=== PATIENT | male | born 1955 | race African-American/Black ===

== ENCOUNTER 2023-08-20 17:11 | Inpatient (IN) | payer OTHER, MEDICARE ==
[~2023-08-20] VITALS: Ht 182.9 cm; Wt 139.9 kg
[2023-08-20] MEDS ORDERED: HYDRALAZINE 20MG/ML VIAL IV ONE ×2 (18:15→19:45)
[2023-08-20 18:19] LABS: BASOPHILS % 0.4 % (0.0-2.0); EOSINOPHILS % 1.5 % (0.0-5.0); HEMATOCRIT. 38.1 % (42.0-52.0); HEMOGLOBIN. 12.3 g/dL (14.0-18.0); LYMPHOCYTES % 11.7 % (20.0-50.0); MEAN CORPUSCULAR HEMOGLOBIN 28.5 pg (28.0-32.0); MEAN CORPUSCULAR HGB CONC 32.4 g/dL (31.0-37.0); MEAN PLATELET VOLUME 9.1 fl (7.4-10.4); MONOCYTES % 9.1 % (2.0-8.0); NEUTROPHILS % 77.3 % (40.0-76.0); PLATELET 156 x1000/uL (130-400); RED BLOOD CELL COUNT 4.32 mill/uL (4.7-6.1); RED CELL DISTRIBUTION WIDTH 15.3 % (11.6-14.6); WHITE BLOOD COUNT 5.1 x1000/uL (4.5-11.0)
[2023-08-20 18:24] LABS: CHLORIDE 104 mEq/L (98-107); INDEX HEMOLYSI 1 (1-3); INDEX ICTERIC 1 (1-4); INDEX LIPEMIC 1 (1-3); POTASSIUM 3.5 mEq/L (3.5-5.1); SODIUM 138 mEq/L (136-145)
[2023-08-20 18:29] LABS: INR 1.3; PROTHROMBIN TIME 13.9 sec (9.6-11.0)
[2023-08-20 18:33] LABS: ALANINE AMINOTRANSFERASE 33 IU/L (13-61); ALBUMIN 3.3 g/dL (3.4-5.0); ASPARTATE AMINOTRANSFERASE 28 IU/L (15-37); BILIRUBIN TOTAL 1.3 mg/dL (0.1-1.0); CARBON DIOXIDE 32 mEq/L (21-32); CREATININE 1.1 mg/dL (0.6-1.3); GLUCOSE 123 mg/dL (70-105); NT PRO B-TYPE NATRIURETIC PEP 1846 pg/mL (5-125); PROTEIN TOTAL 7.4 g/dL (6.0-8.3); TROPONIN I HIGH SENSITIVITY 37 ng/L (<78); UREA NITROGEN BLOOD 13 mg/dL (7-21)
[2023-08-20 18:33] LABS: CLARITY URINE CLEAR (CLEAR); COLOR URINE YELLOW (YELLOW); GLUCOSE URINE NEGATIVE (NEGATIVE); KETONES URINE NEGATIVE (NEGATIVE); LEUKOCYTE ESTERASE URINE NEGATIVE (NEGATIVE); NITRITE URINE NEGATIVE (NEGATIVE); OCCULT BLOOD URINE NEGATIVE (NEGATIVE); PROTEIN URINE NEGATIVE (NEGATIVE); SPECIFIC GRAVITY URINE 1.012 (1.005-1.030); UROBILINOGEN URINE 0.2 E.U./dL (0.2-1.0)
[2023-08-20] MEDS ORDERED: ASPIRIN 325MG TABLET PO ONE (19:00)
[2023-08-20 20:30] VITALS: BP 188/85; PULSE 57; RESP 20; TEMP 97.5
[2023-08-20] MEDS ORDERED: HYDRALAZINE 20MG/ML VIAL IV NR ×2 (21:30→22:30)
[2023-08-20] MEDS ORDERED: HYDRALAZINE 10 MG in SODIUM CHLORIDE 0.9% 49.5 ML IV STA (22:07)
[2023-08-20] MEDS ORDERED: ONDANSETRON HCL 4MG/2ML INJ IV PRN (22:15)
[2023-08-20] MEDS ORDERED: ACETAMINOPHEN 325MG TABLET PO PRN (22:15)
[2023-08-20] MEDS: AMLODIPINE 10MG TABLET PO SCH (23:18)
[2023-08-21] VITALS: BP 198/108; PULSE 61; RESP 20; TEMP 96.6
[2023-08-21] MEDS: CLONIDINE 0.1MG TABLET PO PRN (02:32)
[2023-08-21] MEDS ORDERED: LOSA25TA26 MT (03:59)
[2023-08-21] MEDS ORDERED: HYDR-4133 MT (03:59)
[2023-08-21] MEDS ORDERED: FURO-152 MT (03:59)
[2023-08-21] MEDS ORDERED: CARV3.1242 MT (03:59)
[2023-08-21] MEDS ORDERED: DIGO125T80 MT (03:59)
[2023-08-21] MEDS ORDERED: METF500S9 PO (03:59)
[2023-08-21] MEDS ORDERED: POTA8CAP20 MT (03:59)
[2023-08-21 04:00] VITALS: BP_SYST 176; BP_SYST 198; BP_DIAS 108; BP_DIAS 91; PULSE 61; RESP 20; TEMP 96.6; TEMP 98.1
[2023-08-21] MEDS ORDERED: ATOR10TA69 MT (04:00)
[2023-08-21 05:04] LABS: *AMPHETAMINES SCREEN URINE NEGATIVE (NEGATIVE); *BARBITURATES SCREEN URINE NEGATIVE (NEGATIVE); *BENZODIAZEPINES SCREEN URINE NEGATIVE (NEGATIVE); *COCAINE SCREEN URINE NEGATIVE (NEGATIVE); ECSTASY MDMA SCREEN URINE NEGATIVE (NEGATIVE); OPIATES URINE SCREEN NEGATIVE (NEGATIVE); PHENCYCLIDINE URINE SCREEN NEGATIVE (NEGATIVE)
[2023-08-21 05:42] LABS: BASOPHILS % 0.5 % (0.0-2.0); EOSINOPHILS % 2.3 % (0.0-5.0); HEMATOCRIT. 35.3 % (42.0-52.0); HEMOGLOBIN. 11.7 g/dL (14.0-18.0); LYMPHOCYTES % 14.7 % (20.0-50.0); MEAN CORPUSCULAR HGB CONC 33.2 g/dL (31.0-37.0); MEAN CORPUSCULAR VOLUME 87.2 fL (80.0-94.0); MEAN PLATELET VOLUME 9.1 fl (7.4-10.4); MONOCYTES % 12.5 % (2.0-8.0); PLATELET 141 x1000/uL (130-400); RED BLOOD CELL COUNT 4.04 mill/uL (4.7-6.1); RED CELL DISTRIBUTION WIDTH 15.1 % (11.6-14.6); WHITE BLOOD COUNT 4.5 x1000/uL (4.5-11.0)
[2023-08-21 05:58] LABS: CHLORIDE 105 mEq/L (98-107); INDEX HEMOLYSI 1 (1-3); INDEX ICTERIC 1 (1-4); INDEX LIPEMIC 1 (1-3); POTASSIUM 3.4 mEq/L (3.5-5.1); SODIUM 139 mEq/L (136-145)
[2023-08-21 06:11] LABS: ALANINE AMINOTRANSFERASE 28 IU/L (13-61); ALBUMIN 2.9 g/dL (3.4-5.0); ASPARTATE AMINOTRANSFERASE 23 IU/L (15-37); BILIRUBIN DIRECT 0.3 mg/dL (0.0-0.2); BILIRUBIN TOTAL 1.2 mg/dL (0.1-1.0); CARBON DIOXIDE 32 mEq/L (21-32); CHOLESTEROL 100 mg/dL (<200); CREATININE 1.1 mg/dL (0.6-1.3); GLUCOSE 136 mg/dL (70-105); HDL CHOLESTEROL 35 mg/dL (40-59); LDL CHOLESTEROL 63 mg/dL (5-100); PHOSPHORUS 2.3 mg/dL (2.5-4.9); PROTEIN TOTAL 6.7 g/dL (6.0-8.3); TRIGLYCERIDE 47 mg/dL (0-150); TROPONIN I HIGH SENSITIVITY 40 ng/L (<78); UREA NITROGEN BLOOD 12 mg/dL (7-21)
[2023-08-21 07:00] LABS: CANNABINOID URINE SCREEN NEGATIVE (NEGATIVE)
[2023-08-21 08:00] VITALS: BP 150/77; PULSE 64; RESP 18; TEMP 98.6
[2023-08-21] MEDS: AMLODIPINE 10MG TABLET PO SCH (11:03)
[2023-08-21] MEDS: ASPIRIN 81MG EC TABLET PO SCH (11:03)
[2023-08-21] MEDS: ENOXAPARIN 40MG/0.4ML SYR SUBCUT SCH ×2 (11:04→21:50)
[2023-08-21 12:00] VITALS: BP 169/97; PULSE 54; RESP 18; RESP 20; TEMP 98
[2023-08-21] MEDS: HYDRALAZINE 20MG/ML VIAL IV PRN (14:32)
[2023-08-21 17:12] VITALS: BP 167/80; PULSE 83; RESP 20; TEMP 98.2
[2023-08-21] MEDS ORDERED: NALOXONE HCL 0.4MG/ML VIAL IV PRN (17:15)
[2023-08-21 20:00] VITALS: BP 167/86; PULSE 62; RESP 20; TEMP 98.5
[2023-08-22] VITALS: BP 164/82; PULSE 56; RESP 20; TEMP 98.2
[2023-08-22] MEDS: HYDROCODONE/ACETAMINOPHEN 5/325MG TABLET PO PRN ×2 (02:16→21:37)
[2023-08-22 04:00] VITALS: BP 162/78; PULSE 62; RESP 20; TEMP 98.1
[2023-08-22 07:15] LABS: BASOPHILS % 0.7 % (0.0-2.0); EOSINOPHILS % 2.3 % (0.0-5.0); HEMATOCRIT. 35.4 % (42.0-52.0); HEMOGLOBIN. 11.7 g/dL (14.0-18.0); LYMPHOCYTES % 16.8 % (20.0-50.0); MEAN CORPUSCULAR HEMOGLOBIN 28.9 pg (28.0-32.0); MEAN CORPUSCULAR VOLUME 87.6 fL (80.0-94.0); MEAN PLATELET VOLUME 9.6 fl (7.4-10.4); MONOCYTES % 11.3 % (2.0-8.0); NEUTROPHILS % 68.9 % (40.0-76.0); PLATELET 140 x1000/uL (130-400); RED BLOOD CELL COUNT 4.04 mill/uL (4.7-6.1); RED CELL DISTRIBUTION WIDTH 15.2 % (11.6-14.6); WHITE BLOOD COUNT 4.4 x1000/uL (4.5-11.0)
[2023-08-22 08:00] VITALS: BP 165/82; PULSE 64; RESP 18; TEMP 97.6
[2023-08-22 08:43] LABS: CALCIUM 8.5 mg/dL (8.5-10.1); INDEX HEMOLYSI 1 (1-3); INDEX ICTERIC 1 (1-4); INDEX LIPEMIC 1 (1-3)
[2023-08-22 08:48] LABS: CARBON DIOXIDE 29 mEq/L (21-32); CHLORIDE 105 mEq/L (98-107); GLUCOSE 88 mg/dL (70-105); POTASSIUM 3.2 mEq/L (3.5-5.1); SODIUM 141 mEq/L (136-145); UREA NITROGEN BLOOD 9 mg/dL (7-21)
[2023-08-22] MEDS: ASPIRIN 81MG EC TABLET PO SCH (10:46)
[2023-08-22] MEDS: ENOXAPARIN 40MG/0.4ML SYR SUBCUT SCH ×2 (10:46→21:30)
[2023-08-22] MEDS: AMLODIPINE 10MG TABLET PO SCH (10:47)
[2023-08-22 12:00] VITALS: BP 181/101; PULSE 83; RESP 18; TEMP 97.4
[2023-08-22] MEDS: HYDRALAZINE 20MG/ML VIAL IV PRN (12:21)
[2023-08-22] MEDS ORDERED: POTASSIUM CHLORIDE 20MEQ TABLET SR PO SCH (13:15)
[2023-08-22] MEDS: HYDRALAZINE HCL 25MG TABLET PO SCH ×2 (13:17→21:29)
[2023-08-22] MEDS: CLOPIDOGREL 75MG TABLET PO SCH (13:25)
[2023-08-22 16:00] VITALS: BP 167/82; PULSE 85; RESP 18; TEMP 96.9
[2023-08-22 20:00] VITALS: BP 180/85; PULSE 79; RESP 19; TEMP 96.4
[2023-08-22] MEDS ORDERED: ATORVASTATIN CALCIUM 40MG TABLET PO SCH (21:00)
[2023-08-22] MEDS: CLONIDINE 0.1MG TABLET PO PRN (21:29)
[2023-08-23] VITALS: BP 142/61; PULSE 65; RESP 18; TEMP 97.7
[2023-08-23 04:00] VITALS: BP 168/61; PULSE 73; RESP 18; TEMP 97.9
[2023-08-23] MEDS: HYDRALAZINE HCL 25MG TABLET PO SCH ×2 (06:07→13:36)
[2023-08-23 08:00] VITALS: BP 193/94; PULSE 73; RESP 18; TEMP 98.1
[2023-08-23] MEDS: ASPIRIN 81MG EC TABLET PO SCH (08:36)
[2023-08-23] MEDS: CLOPIDOGREL 75MG TABLET PO SCH (08:36)
[2023-08-23] MEDS: AMLODIPINE 10MG TABLET PO SCH (08:36)
[2023-08-23] MEDS: ENOXAPARIN 40MG/0.4ML SYR SUBCUT SCH (08:36)
[2023-08-23 12:00] VITALS: BP 177/90; PULSE 70; RESP 18; TEMP 97.3
[2023-08-23] MEDS ORDERED: FOLIC ACID 1MG TABLET PO SCH (14:00)
[2023-08-23 16:03] VITALS: BP 163/81; PULSE 85; RESP 18; TEMP 97.8
[2023-08-23] MEDS: CLONIDINE 0.1MG TABLET PO PRN (16:06)
[2023-08-23 16:11] VITALS: BP 163/81; PULSE 85; TEMP 97.8; O2SAT 98
[2023-08-23] MEDS ORDERED: APIXABAN 5 MG TABLET PO SCH (17:00)
== END 2023-08-23 18:00 | disposition home health service (06) | DRG 65 ==
LOC: ER 17:11 → 6EST 18:49 → EDBEDREQTM 18:51 → EDBEDREQ 18:51 → 5WST 22:45
PROVIDERS: ADMIT Internal Medicine; ATTEND Internal Medicine
DX: I63.9 Cerebral infarction, unspecified (principal); I48.19 Other persistent atrial fibrillation; R47.01 Aphasia; E11.9 Type 2 diabetes mellitus without complications; E78.5 Hyperlipidemia, unspecified; R29.702 NIHSS score 2; E87.6 Hypokalemia; I11.9 Hypertensive heart disease without heart failure; Z79.01 Long term (current) use of anticoagulants; Z79.82 Long term (current) use of aspirin; Z79.899 Other long term (current) drug therapy
CPT/HCPCS: 36415; 70496; 70498; 70551; 71045; 80048; 80053; 80061; 80076; 80305; 81003; 83036; 83735; 83880; 84100; 84443; 84484; 85025; 92523; 93005; 93306; 93970; 97162; 97165; 99291; J0360; J1650

== ENCOUNTER 2024-02-15 01:33 | Inpatient (IN) | payer OTHER, MEDICARE ==
[~2024-02-15] VITALS: Ht 182.9 cm; Wt 123.0 kg
[~2024-02-15 01:33] MED LIST: ATOR10TA69 MT; CARV3.1242 MT; DIGO125T80 MT; FURO-152 MT; HYDR-2988 MT; LOSA25TA26 MT; METF500S9 PO; POTA8CAP20 MT
[2024-02-15 02:17] LABS: BASOPHILS % 0.6 % (0.0-2.0); EOSINOPHILS % 2.7 % (0.0-5.0); HEMATOCRIT. 37.8 % (42.0-52.0); HEMOGLOBIN. 12.5 g/dL (14.0-18.0); LYMPHOCYTES % 22.1 % (20.0-50.0); MEAN CORPUSCULAR HEMOGLOBIN 28.7 pg (28.0-32.0); MEAN CORPUSCULAR VOLUME 87.1 fL (80.0-94.0); MEAN PLATELET VOLUME 8.7 fl (7.4-10.4); NEUTROPHILS % 64.6 % (40.0-76.0); PLATELET 112 x1000/uL (130-400); RED BLOOD CELL COUNT 4.34 mill/uL (4.7-6.1); RED CELL DISTRIBUTION WIDTH 16.6 % (11.6-14.6); WHITE BLOOD COUNT 3.4 x1000/uL (4.5-11.0)
[2024-02-15 02:22] LABS: CHLORIDE 105 mEq/L (98-107); POTASSIUM 3.4 mEq/L (3.5-5.1); SODIUM 138 mEq/L (136-145)
[2024-02-15 02:23] LABS: CALCIUM 8.4 mg/dL (8.7-10.4); CARBON DIOXIDE 28 mEq/L (21-32)
[2024-02-15 02:28] LABS: GLUCOSE 97 mg/dL (70-105); UREA NITROGEN BLOOD 7 mg/dL (9-23)
[2024-02-15 02:29] LABS: TROPONIN I HIGH SENSITIVITY 40 ng/L (3.0-53)
[2024-02-15 02:30] LABS: ALANINE AMINOTRANSFERASE 25 IU/L (10-49); ALBUMIN 3.7 g/dL (3.2-4.8); ASPARTATE AMINOTRANSFERASE 44 IU/L (<34); BILIRUBIN TOTAL 0.9 mg/dL (0.1-1.0); PROTEIN TOTAL 7.5 g/dL (6.0-8.3)
[2024-02-15 02:31] LABS: INR 1.2; PROTHROMBIN TIME 13.6 sec (9.6-11.0)
[2024-02-15 02:34] LABS: CLARITY URINE CLOUDY (CLEAR); COLOR URINE DARK YELLOW (YELLOW); GLUCOSE URINE NEGATIVE (NEGATIVE); KETONES URINE TRACE (NEGATIVE); LEUKOCYTE ESTERASE URINE 1+ (NEGATIVE); NITRITE URINE NEGATIVE (NEGATIVE); OCCULT BLOOD URINE 3+ (NEGATIVE); PROTEIN URINE 1+ (NEGATIVE); SPECIFIC GRAVITY URINE 1.022 (1.005-1.030)
[2024-02-15 03:08] LABS: BACTERIA URINE 1+; RBC URINE TNTC /hpf (0-2); SQUAMOUS EPITHELIAL CELL URINE 1+ /lpf (RARE/1+)
[2024-02-15] MEDS: FUROSEMIDE 40MG/4ML VIAL IV NR (04:35)
[2024-02-15] MEDS: METHYLPREDNISOLONE SOD SUCC 125MG/2ML (ACT-O-VIAL) IV NR (04:36)
[2024-02-15] MEDS: MAGNESIUM 2 G PREMIX 50 ML IV NR (05:02)
[2024-02-15 06:03] VITALS: PULSE 65; RESP 22; O2SAT 95
[2024-02-15] MEDS: IPRATROPIUM BROMIDE (0.02%) 0.5MG/2.5ML NEB HHN NR (06:03)
[2024-02-15] MEDS: ALBUTEROL (0.083%) 2.5MG/3ML NEB HHN NR (06:04)
[2024-02-15] MEDS: HYDRALAZINE 20MG/ML VIAL IV ONE (06:55)
[2024-02-15 11:05] VITALS: BP 188/105; PULSE 74; RESP 22; TEMP 98.6
[2024-02-15 12:00] VITALS: BP 169/116; PULSE 81; RESP 30; TEMP 98.6
[2024-02-15] MEDS ORDERED: CLONIDINE 0.1MG TABLET PO PRN (13:00)
[2024-02-15] MEDS ORDERED: ACETAMINOPHEN 325MG TABLET PO PRN (13:00)
[2024-02-15] MEDS ORDERED: IPRATROPIUM/ALBUTEROL 0.5-3(2.5)MG/3ML NEB HHN PRN (13:00)
[2024-02-15] MEDS ORDERED: ONDANSETRON HCL 4MG/2ML INJ IV PRN (13:00)
[2024-02-15] MEDS: POTASSIUM CHLORIDE 20MEQ TABLET SR PO NR (14:55)
[2024-02-15] MEDS: FUROSEMIDE 40MG/4ML VIAL IVP SCH (14:55)
[2024-02-15] MEDS: HYDRALAZINE HCL 100MG TABLET PO SCH (15:03)
[2024-02-15] MEDS: HYDRALAZINE 20MG/ML VIAL IV PRN (15:06)
[2024-02-15] MEDS ORDERED: VALS160T28 PO (15:13)
[2024-02-15] MEDS ORDERED: APIX5TAB MT (15:14)
[2024-02-15] MEDS: CEFTRIAXONE 1GM/50ML 50 ML IV SCH (15:27)
[2024-02-15 15:42] LABS: BG BASE EXCESS 3.8 mmol/L (-2.0-2.0); BG CARBOXYHEMOGLOBIN 0.8 % (0.5-1.5); BG FRACTION INSPIRED OXYGEN 21; BG HCO3 ACT 27.4 mmol/L (22.0-26.0); BG METHEMOGLOBIN 0.2 % (0.0-1.5); BG OXYGEN SATURATION 93.9 % (92.0-98.5); BG PCO2 38.1 mmHg (35.0-45.0); BG PH 7.475 (7.350-7.450); BG PO2 69.1 mmHg (75.0-100.0); BG SAMPLE SITE LEFT RADIAL; BG TOTAL HEMOGLOBIN 14.3 g/dL (12.0-18.0); BG VENT MODE ROOM AIR
[2024-02-15 16:23] LABS: *AMPHETAMINES SCREEN URINE NEGATIVE (NEGATIVE); *BENZODIAZEPINES SCREEN URINE NEGATIVE (NEGATIVE)
[2024-02-15 16:24] LABS: *BARBITURATES SCREEN URINE NEGATIVE (NEGATIVE); *COCAINE SCREEN URINE NEGATIVE (NEGATIVE); CANNABINOID URINE SCREEN NEGATIVE (NEGATIVE); ECSTASY MDMA SCREEN URINE NEGATIVE (NEGATIVE); METHADONE URINE SCREEN Neg (NEGATIVE); OPIATES URINE SCREEN NEGATIVE (NEGATIVE); PHENCYCLIDINE URINE SCREEN NEGATIVE (NEGATIVE)
[2024-02-15 20:00] VITALS: BP 163/89; PULSE 73; RESP 20; TEMP 98.1
[2024-02-15] MEDS: APIXABAN 5 MG TABLET PO SCH (20:49)
[2024-02-15] MEDS: GUAIFENESIN 600MG ER TABLET PO SCH (20:49)
[2024-02-15] MEDS: ACETAMINOPHEN 325MG TABLET PO PRN (20:49)
[2024-02-15] MEDS: DOCUSATE SODIUM 100MG CAPSULE PO PRN (22:53)
[2024-02-15] MEDS: MELATONIN 3MG TABLET PO SCH (22:54)
[2024-02-16] VITALS (9 sets, daily range): BP systolic 128–172; BP diastolic 70–120; PULSE 60–92; RESP 16–29; TEMP 98–98.6; O2SAT 97
[2024-02-16 06:56] LABS: CALCIUM 7.9 mg/dL (8.7-10.4); CHLORIDE 103 mEq/L (98-107); POTASSIUM 3.6 mEq/L (3.5-5.1); SODIUM 139 mEq/L (136-145)
[2024-02-16 06:57] LABS: CARBON DIOXIDE 28 mEq/L (21-32)
[2024-02-16 07:02] LABS: CREATININE 1.2 mg/dL (0.6-1.3)
[2024-02-16 07:03] LABS: GLUCOSE 122 mg/dL (70-105); LDL CHOLESTEROL 60 mg/dL (5-100); TRIGLYCERIDE 43 mg/dL (0-150); UREA NITROGEN BLOOD 15 mg/dL (9-23)
[2024-02-16 07:04] LABS: HEMATOCRIT. 36.1 % (42.0-52.0); HEMOGLOBIN. 12.3 g/dL (14.0-18.0); LYMPHOCYTES % 11.9 % (20.0-50.0); MEAN CORPUSCULAR HEMOGLOBIN 29.9 pg (28.0-32.0); MEAN CORPUSCULAR VOLUME 87.9 fL (80.0-94.0); MONOCYTES % 6.9 % (2.0-8.0); NEUTROPHILS % 81.2 % (40.0-76.0); PLATELET 137 x1000/uL (130-400); RED CELL DISTRIBUTION WIDTH 16.3 % (11.6-14.6); WHITE BLOOD COUNT 6.7 x1000/uL (4.5-11.0)
[2024-02-16 07:05] LABS: CHOLESTEROL 106 mg/dL (<200); HDL CHOLESTEROL 31 mg/dL (>55)
[2024-02-16] MEDS: SPIRONOLACTONE 25MG TABLET PO SCH (10:18)
[2024-02-16] MEDS: HYDRALAZINE 20MG/ML VIAL IV PRN (15:52)
[2024-02-16] MEDS ORDERED: IPRATROPIUM/ALBUTEROL 0.5-3(2.5)MG/3ML NEB HHN SCH (18:00)
[2024-02-16] MEDS ORDERED: GUAI600T26 MT (18:09)
[2024-02-16] MEDS ORDERED: DOCU-138 MT (18:09)
[2024-02-16] MEDS ORDERED: SPIR25TA MT (18:09)
[2024-02-16] MEDS ORDERED: CIPR-263 MT (18:09)
[2024-02-16] MEDS ORDERED: FURO-151 MT (18:09)
[2024-02-16] MEDS ORDERED: HYDR100T26 MT (18:09)
== END 2024-02-16 23:15 | disposition home or self-care (01) | DRG 304 ==
LOC: ER 01:33 → 3WST 05:08 → EDBEDREQ 05:18 → EDBEDREQTM 05:18
PROVIDERS: ADMIT Internal Medicine; ATTEND Internal Medicine
DX: I16.1 Hypertensive emergency (principal); I50.41 Acute combined systolic (congestive) and diastolic (congestive) heart failure; N39.0 Urinary tract infection, site not specified; R06.03 Acute respiratory distress; I48.91 Unspecified atrial fibrillation; E11.9 Type 2 diabetes mellitus without complications; E87.6 Hypokalemia; D64.9 Anemia, unspecified; D72.819 Decreased white blood cell count, unspecified; E66.9 Obesity, unspecified; I27.20 Pulmonary hypertension, unspecified; I11.0 Hypertensive heart disease with heart failure; F10.21 Alcohol dependence, in remission; I25.2 Old myocardial infarction; Z20.822 Contact with and (suspected) exposure to COVID-19; Z86.73 Personal history of transient ischemic attack (TIA), and cerebral infarction without residual deficits; Z79.01 Long term (current) use of anticoagulants; Z79.84 Long term (current) use of oral hypoglycemic drugs; Z79.899 Other long term (current) drug therapy; Z68.36 Body mass index [BMI] 36.0-36.9, adult
CPT/HCPCS: 36415; 36600; 71045; 80048; 80053; 80061; 80305; 81003; 82375; 82805; 83036; 83880; 84484; 85025; 85379; 87426; 93005; 93306; 94640; 99291; J0360; J0696; J1940; J2930; J3475